=== PATIENT | male | born 1955 | race Caucasian/White ===

== ENCOUNTER → 2017-01-25 | Outpatient (CLI) | payer MEDICAID ==
--- NOTE | 2017-01-25 17:07 | MRI ---
HISTORY: Carotid stenosis. EVALUATE FOR CAROTID ARTERY STENOSIS. EXAM: Noncontrast MRA EXAM OF THE NECK. Technique: [id number] MRA images of the neck vasculature were performed without the use of IV con trast for this examination. FINDINGS: There is scattered atherosclerosis seen throughout the right internal carotid artery throughout its c ourse but without evidence for high-grade stenosis or occlusion of the visualized right ICA. The righ t vertebral artery is also abdominal without evidence for high-grade stenosis or occlusion of this ar rosy. There is a lack of T2 intense signal seen within the distal left vertebral artery at the skullbase le sid and there is no significant signal seen within the left internal carotid artery. These findings c an be seen with longstanding occlusion or acute occlusion of these arteries and further evaluation wi th CT angiographic imaging of the neck vasculature is recommended to assess for steal phenomenon, hig h-grade stenosis, or other abnormalities involving the left carotid and vertebral arteries. No large aneurysm is seen. No other vascular abnormalities are identified. IMPRESSION: Lack of T2 intense signal seen within the distal left vertebral artery at the skullbase l evel and there is no significant signal seen within the left internal carotid artery. These findings can be seen with longstanding occlusion or acute occlusion of these arteries and further evaluation w ith CT angiographic imaging of the neck vasculature is recommended to assess for steal phenomenon, hi gh-grade stenosis, or other abnormalities involving the left carotid and vertebral arteries. No large aneurysm is seen. No other vascular abnormalities are identified. Reported By:
== END ==
LOC: RAD 15:44
PROVIDERS: ATTEND Psychiatry & Neurology Neurology
DX: I65.21 Occlusion and stenosis of right carotid artery (principal)
CPT/HCPCS: 70547